=== PATIENT | female | born 1935 | race Caucasian/White ===

== ENCOUNTER 2016-11-18 18:01 | Emergency (ER) | payer MEDICARE, OTHER ==
[~2016-11-18] VITALS: Ht 167.6 cm; Wt 59.0 kg
[~2016-11-18 18:01] MED LIST: ACETAMINOPHEN-1 EAC1 ORAL; ATIVAN1 MG ORAL; BENADRYL50 MG ORAL; EPIPEN 2-P0.3 MG/0.3 IM; PREDNISONE20 MG ORAL
[2016-11-18] MEDS ORDERED: SYNTHROID75 MCG ORAL (18:45)
[2016-11-18] MEDS ORDERED: Tubing IV Cassette IV ONE (18:53)
[2016-11-18 19:02] LABS: BASOPHILS % (AUTO) 1.6 % (0.0-2.0); EOSINOPHILS % (AUTO) 3.6 % (0.0-3.0); LYMPHOCYTES % (AUTO) 34.8 % (20.0-45.0); MEAN CORPUSCULAR HEMOGLOBIN 33.7 PG (27.0-31.0); MEAN CORPUSCULAR HGB CONC 35.2 G/DL (32.0-36.0); MEAN CORPUSCULAR VOLUME 96 FL (80-99); MEAN PLATELET VOLUME 9.5 FL (6.5-10.1); PLATELET COUNT 286 K/UL (150-450); RED BLOOD COUNT 4.38 M/UL (4.20-5.40); RED CELL DISTRIBUTION WIDTH 12.1 % (11.6-14.8); WHITE BLOOD COUNT 8.9 K/UL (4.8-10.8)
[2016-11-18 19:11] LABS: PROTHROMBIN TIME 10.2 SEC (9.30-11.50)
[2016-11-18 19:17] LABS: ALANINE AMINOTRANSFERASE 15 U/L (3-33); ALBUMIN/GLOBULIN RATIO 1.5 (1.0-2.7); ANION GAP 11 (5-15); ASPARTATE AMINO TRANSFERASE 16 U/L (5-40); CALCIUM 11.6 mg/dL (8.6-10.2); CARBON DIOXIDE 25 mEQ/L (20-30); CHLORIDE 105 mEQ/L (98-107); CREATININE 0.8 mg/dL (0.5-0.9); HEMOLYSIS 9; LIPASE 43 U/L (< 60); SODIUM 141 mEQ/L (135-145); TOTAL PROTEIN 6.6 g/dL (6.6-8.7); TROPONIN I < 0.30 ng/mL (<=0.30)
[2016-11-18] MEDS ORDERED: Clindamycin PO (19:18)
[2016-11-18 19:25] VITALS: BP 119/58
[2016-11-18] MEDS ORDERED: TRAMADOL HCL50 MG ORAL (20:33)
[2016-11-18 20:42] VITALS: BP 127/66
[2016-11-18 20:45] VITALS: BP 127/66
--- NOTE | 2016-11-18 20:57 | Emergency Room Report ---
History of Present Illness General Chief Complaint: Abdominal Pain Source: Patient (BEBA OLIVER) Present Illness HPI The patient is an 81-year-old female presenting with abdominal pain. She states that she experienced right upper abdominal pain 2 days prior described as cramping 10/11. Pain does not radiate. She states that this began after taking clindamycin prescribed by her dentist. She does admit to history of gallstones. She denies any other symptoms including nausea, vomiting, fever, chills, back pain, dysuria (BEBA OLIVER) Allergies: Coded Allergies: IODINE (Verified Allergy, Unknown, 03/16/15) Patient History Past Medical History: see triage record Pertinent Family History: none Reviewed Nursing Documentation: PMH: Agreed, PSxH: Agreed (BEBA OLIVER) Nursing Documentation-PMH Past Medical History: No History, Except For Hx Cancer: No Hx Gastrointestinal Problems: Yes Hx Neurological Problems: No (BEBA OLIVER) Review of Systems All Other Systems: negative except mentioned in HPI (BEBA OLIVER P.AEzequiel) Physical Exam Vital Signs Date Time Temp Pulse Resp B/P (MAP) Pulse Ox O2 Delivery O2 Flow Rate FiO2 11/18/16 18:07 97.3 67 18 130/66 99 Room Air Sp02 EP Interpretation: reviewed, normal General Appearance: no apparent distress, alert, GCS 15, non-toxic Head: normocephalic, atraumatic Eyes: bilateral eye normal inspection, bilateral eye PERRL ENT: hearing grossly normal, normal pharynx, no angioedema, normal voice Respiratory: chest non-tender, lungs clear, normal breath sounds, speaking full sentences Cardiovascular #1: regular rate, rhythm, no edema Gastrointestinal: normal bowel sounds, soft, non-distended, no guarding, tenderness - TTP over RUQ Genitourinary: normal inspection, no CVA tenderness Musculoskeletal: back normal, gait/station normal, normal range of motion, non- tender Neurologic: alert, oriented x3, responsive, motor strength/tone normal, sensory intact, speech normal Psychiatric: judgement/insight normal, memory normal, mood/affect normal, no suicidal/homicidal ideation Skin: normal color, no rash, warm/dry, well hydrated (BEBA OLIVER) Medical Decision Making [place] Attestation Dr. Singletary is my supervising physician. Patient management was discussed with my supervising physician (BEBA OLIVER) Medicare Attestation The history of Pilar Santamaria has been reviewed and management options for her have been examined and discussed by Prashant Singletary. I have personally examined and interviewed the patient. (PRASHANT SINGLETARY M.D.) Diagnostic Impression: Primary Impression: Gallstones Additional Impression: Abdominal pain Qualified Codes: R10.9 - Unspecified abdominal pain ER Course The patient is an 81-year-old female presenting with abdominal pain. Differential diagnoses considered include but not limited to gastritis, pancreatitis, cholecystitis, gallstone, hepatitis, among others Physical exam: Afebrile. No apparent distress There is tenderness to palpation over right upper quadrant only. No guarding. Normal bowel sounds. Nondistended. No CVA tenderness All labs unremarkable. Abdominal ultrasound reveals gallstones with no signs of cholecystitis. The patient will be discharged home with pain medication and needs to follow up with her primary doctor. ER precautions given Laboratory Tests Test 11/18/16 18:10 White Blood Count 8.9 K/UL (4.8-10.8) Red Blood Count 4.38 M/UL (4.20-5.40) Hemoglobin 14.7 G/DL (12.0-16.0) Hematocrit 41.9 % (37.0-47.0) Mean Corpuscular Volume 96 FL (80-99) Mean Corpuscular Hemoglobin 33.7 PG (27.0-31.0) H Mean Corpuscular Hemoglobin Concent 35.2 G/DL (32.0-36.0) Red Cell Distribution Width 12.1 % (11.6-14.8) Platelet Count 286 K/UL (150-450) Mean Platelet Volume 9.5 FL (6.5-10.1) Neutrophils (%) (Auto) 51.0 % (45.0-75.0) Lymphocytes (%) (Auto) 34.8 % (20.0-45.0) Monocytes (%) (Auto) 9.0 % (1.0-10.0) Eosinophils (%) (Auto) 3.6 % (0.0-3.0) H Basophils (%) (Auto) 1.6 % (0.0-2.0) Prothrombin Time 10.2 SEC (9.30-11.50) Prothrombin Time INR 1.0 (0.9-1.1) PTT 28 SEC (23-33) Sodium Level 141 mEQ/L (135-145) Potassium Level 4.0 mEQ/L (3.4-4.9) Chloride Level 105 mEQ/L (98-107) Carbon Dioxide Level 25 mEQ/L (20-30) Anion Gap 11 (5-15) Blood Urea Nitrogen 8 mg/dL (7-23) Creatinine 0.8 mg/dL (0.5-0.9) Estimate Glomerular Filtration Rate mL/min (>60) Glucose Level 89 mg/dL (74-106) Calcium Level 11.6 mg/dL (8.6-10.2) H Total Bilirubin 0.2 mg/dL (0.0-1.2) Aspartate Amino Transferase (AST) 16 U/L (5-40) Alanine Aminotransferase (ALT) 15 U/L (3-33) Alkaline Phosphatase 59 U/L (35-104) Troponin I < 0.30 ng/mL (<=0.30) Total Protein 6.6 g/dL (6.6-8.7) Albumin 4.0 g/dL (3.5-5.2) Globulin 2.6 g/dL Albumin/Globulin Ratio 1.5 (1.0-2.7) Lipase 43 U/L (< 60) Lab Results Impression Unremarkable. No leukocytosis (TERESTRADAAN,BEBA P.A.) CT/MRI/US Diagnostic Results CT/MRI/US Diagnostic Results : Imaging Test Ordered: Abd US Impression Gallbladder stones are seen. Gallbladder wall evaluation limited per forestry aid technician. No evidence of cholecystitis (BENITO,BEBA P.A.) Last Vital Signs Date Time Temp Pulse Resp B/P (MAP) Pulse Ox O2 Delivery O2 Flow Rate FiO2 11/18/16 19:25 97.3 61 14 119/58 96 Room Air Status: improved (BENITO,BEBA P.A.) Disposition: HOME, SELF-CARE Condition: Improved Scripts Tramadol Hcl* (ULTRAM*) 50 Mg Tablet 50 MG ORAL Q6H Y for For Pain, #12 TAB 0 Refills Prov: BEBA OLIVER 11/18/16 Patient Instructions: Cholelithiasis, Abdominal Pain, Adult Additional Instructions: I discussed my findings with the patient. All questions and concerns have been answered. Treatment and medication compliance have been addressed. I advised the patient that they need to follow up with PMD in 3-5 days. Return to ED if symptoms worsen, new symptoms arise, or if needed for any reason. Patient verbalized understanding of discharge instructions. BEBA OLIVER Nov 18, 2016 20:57 PRASHANT SINGLETARY M.D. Nov 21, 2016 17:46
[2016-11-18 21:01] VITALS: BP 127/66
--- NOTE | 2016-11-19 10:04 | Diagnostic Imaging Report ---
Indication: Right upper quadrant pain Technique: Valladares-scale and duplex images of the upper abdomen were obtained Comparison: 02/16/2008 Findings: Gallbladder is incompletely distended, and therefore evaluation is suboptimal. There are gallstones. No definite gallbladder wall thickening, although lack of distention precludes optimal evaluation of wall thickness Sonographic Villalta's sign is negative. Common bile duct measures 6 mm in diameter. No intrahepatic biliary ductal dilatation. Liver demonstrates normal echogenicity. Multiple cysts are seen within the liver, including 4.8 cm cyst in the right hepatic lobe which was also demonstrated previously. Portal vein and hepatic veins are patent. Pancreas is unremarkable. Spleen is unremarkable. Left kidney measures 9.9 cm in length. Right kidney measures 8.9 cm length. Both kidneys demonstrate normal echogenicity. There is no hydronephrosis. The left kidney demonstrates a 19 mm cyst . Non-aneurysmal abdominal aorta . Impression: Limit evaluation gallbladder, due to lack of distention due to patient having recently eaten. There is cholelithiasis. Negative for dilated ducts Incidental finding of hepatic and left renal cysts, also previously described. Note that a prior CT scan of 03/16/2015 demonstrates more hepatic cysts than are evident sonographically
== END 2016-11-18 20:45 | disposition home or self-care (01) ==
LOC: EMR 19:32
DX: K80.80 Other cholelithiasis without obstruction (principal); K76.89 Other specified diseases of liver; N28.1 Cyst of kidney, acquired
CPT/HCPCS: 36415; 76700; 80053; 83690; 84484; 85025; 85610; 85730; 96361; 96374; 99284; J2405

== ENCOUNTER 2017-03-28 12:32 | Inpatient (IN) | payer MEDICARE, OTHER ==
[~2017-03-28] VITALS: Ht 167.6 cm; Wt 59.0 kg
[~2017-03-28 12:32] MED LIST changes: +Clindamycin PO; +SYNTHROID75 MCG ORAL; +TRAMADOL HCL50 MG ORAL
[2017-03-28 12:51] VITALS: BP 145/64
--- NOTE | 2017-03-28 13:31 | Emergency Room Report ---
History of Present Illness General Chief Complaint: Pain Source: Patient Present Illness HPI This is an 81-year-old female presented after increased right upper extremity burning sensation. Patient gradual onset of symptoms. Patient reports as being worse with neck movements. She states that she had not had any recent trauma. She had no relief with codeine or morphine. She reports having some increased drooping to her right eye. Patient reported having some had decrease in strength her lower extremities. She reports also having some change in the strength to her right upper extremity. Patient prior history of gallstones. She denies prior surgical management of any conditions. She had recently had a steroid injection. She denies any fever. She reports having recent left eye discharge and had been treated with eyedrops recently. The patient was noted to have the consistent drainage of her left nostril. the patient was noted to have increased right upper extremity discomfort with a burning type sensation which was not associated with any weakness however she was noted to have increased pain with abduction. And right lateral neck movement Allergies: Coded Allergies: IODINE (Verified Allergy, Unknown, 03/16/15) Patient History Past Medical History: see triage record Reviewed Nursing Documentation: PMH: Agreed, PSxH: Agreed Nursing Documentation-PMH Past Medical History: No History, Except For Hx Cancer: No Hx Gastrointestinal Problems: Yes Hx Neurological Problems: No Review of Systems All Other Systems: negative except mentioned in HPI Physical Exam Vital Signs Date Time Temp Pulse Resp B/P (MAP) Pulse Ox O2 Delivery O2 Flow Rate FiO2 03/28/17 12:41 97.2 80 16 145/64 99 Room Air Sp02 EP Interpretation: reviewed, normal General Appearance: normal inspection, no apparent distress, alert, GCS 15, Chronically Ill Head: atraumatic Eyes: bilateral eye other - right eye ptosis ENT: normal ENT inspection, hearing grossly normal, normal voice Neck: normal inspection, supple, no bony tend, other - increased pain with right rotation Respiratory: normal inspection, lungs clear, normal breath sounds, no respiratory distress, no retraction, no wheezing Cardiovascular #1: regular rate, rhythm, no edema Gastrointestinal: normal inspection, normal bowel sounds, non tender, soft, no guarding, no hernia Genitourinary: no CVA tenderness Musculoskeletal: normal inspection, back normal, decreased range of motion - right side of neck Neurologic: normal inspection, alert, oriented x3, responsive, speech normal, motor weakness - right side of neck, other - ptosis right eye, oriented Psychiatric: normal inspection, judgement/insight normal, mood/affect normal Skin: normal inspection, normal color, no rash Medical Decision Making Diagnostic Impression: Primary Impression: Right arm numbness Additional Impressions: Ptosis of eyelid, right Weakness 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 Differential diagnosis included was not limited to CVA, cervical stenosis, myasthenia gravis, thyroid myopathy, among others.Because of complexity of patient's case laboratory testing and imaging studies were ordered. Patient was noted to have weakness to her right upper extremity and bilateral lower extremities. The patient noted have acute pain to her right upper extremity. A CT imaging read radiology showed large right paratracheal mass. CT of the head read by radiology showed large amount of sinus fluid in the maxillary as well as the frontal sinus. Patient was given IV antibiotics Dr. Alvarez was contacted for inpatient management due to complexity of medical condition. Labs Test 03/28/17 13:56 White Blood Count 13.2 K/UL (4.8-10.8) Red Blood Count 4.76 M/UL (4.20-5.40) Hemoglobin 14.8 G/DL (12.0-16.0) Hematocrit 44.2 % (37.0-47.0) Mean Corpuscular Volume 93 FL (80-99) Mean Corpuscular Hemoglobin 31.0 PG (27.0-31.0) Mean Corpuscular Hemoglobin Concent 33.4 G/DL (32.0-36.0) Red Cell Distribution Width 11.9 % (11.6-14.8) Platelet Count 351 K/UL (150-450) Mean Platelet Volume 7.9 FL (6.5-10.1) Neutrophils (%) (Auto) 69.4 % (45.0-75.0) Lymphocytes (%) (Auto) 19.2 % (20.0-45.0) Monocytes (%) (Auto) 9.0 % (1.0-10.0) Eosinophils (%) (Auto) 1.2 % (0.0-3.0) Basophils (%) (Auto) 1.2 % (0.0-2.0) Erythrocyte Sedimentation Rate 6 MM/HR (0-42) Sodium Level 140 MMOL/L (136-145) Potassium Level 4.2 MMOL/L (3.5-5.1) Chloride Level 105 MMOL/L (98-107) Carbon Dioxide Level 26 MMOL/L (21-32) Anion Gap 9 mmol/L (5-15) Blood Urea Nitrogen 16 mg/dL (7-18) Creatinine 0.6 MG/DL (0.55-1.30) Estimat Glomerular Filtration Rate mL/min (>60) Glucose Level 88 MG/DL (74-106) Calcium Level 10.2 MG/DL (8.5-10.1) Total Bilirubin 0.4 MG/DL (0.2-1.0) Aspartate Amino Transf (AST/SGOT) 10 U/L (15-37) Alanine Aminotransferase (ALT/SGPT) 15 U/L (12-78) Alkaline Phosphatase 54 U/L (46-116) Troponin I 0.000 ng/mL (0.000-0.056) C-Reactive Protein, Quantitative < 0.4 mg/dL (0.00-0.90) Total Protein 6.1 G/DL (6.4-8.2) Albumin 3.6 G/DL (3.4-5.0) Globulin 2.5 g/dL Albumin/Globulin Ratio 1.4 (1.0-2.7) Thyroid Stimulating Hormone (TSH) 4.326 uiU/mL (0.358-3.740) Last Vital Signs Date Time Temp Pulse Resp B/P (MAP) Pulse Ox O2 Delivery O2 Flow Rate FiO2 03/28/17 12:51 97.2 16 145/64 99 Room Air 03/28/17 12:41 80 Status: unchanged Disposition: ADMITTED INPATIENT Condition: Elver Gore Mar 28, 2017 13:31
[2017-03-28 14:17] LABS: BASOPHILS % (AUTO) 1.2 % (0.0-2.0); EOSINOPHILS % (AUTO) 1.2 % (0.0-3.0); HEMATOCRIT 44.2 % (37.0-47.0); HEMOGLOBIN 14.8 G/DL (12.0-16.0); LYMPHOCYTES % (AUTO) 19.2 % (20.0-45.0); MEAN CORPUSCULAR VOLUME 93 FL (80-99); NEUTROPHILS % (AUTO) 69.4 % (45.0-75.0); PLATELET COUNT 351 K/UL (150-450); RED BLOOD COUNT 4.76 M/UL (4.20-5.40); RED CELL DISTRIBUTION WIDTH 11.9 % (11.6-14.8); WHITE BLOOD COUNT 13.2 K/UL (4.8-10.8)
[2017-03-28 14:29] LABS: ANION GAP 9 mmol/L (5-15); BLOOD UREA NITROGEN 16 mg/dL (7-18); CALCIUM 10.2 MG/DL (8.5-10.1); CARBON DIOXIDE 26 MMOL/L (21-32); CHLORIDE 105 MMOL/L (98-107); CREATININE 0.6 MG/DL (0.55-1.30); POTASSIUM 4.2 MMOL/L (3.5-5.1); SODIUM 140 MMOL/L (136-145)
[2017-03-28] MEDS ORDERED: Morphine Sulfate 4mg/ml Inj IVP ONE ×2 (14:30→18:45)
[2017-03-28 14:43] LABS: ALANINE AMINOTRANSFERASE 15 U/L (12-78); ALBUMIN 3.6 G/DL (3.4-5.0); ALBUMIN/GLOBULIN RATIO 1.4 (1.0-2.7); ALKALINE PHOSPHATASE 54 U/L (46-116); ASPARTATE AMINO TRANSFERASE 10 U/L (15-37); BILIRUBIN,TOTAL 0.4 MG/DL (0.2-1.0)
--- NOTE | 2017-03-28 15:10 | Diagnostic Imaging Report ---
Indications: Increased right upper extremity burning sensation and altered mental status, right eye drooping, decreased lower extremity strength and right upper extremity strength Technique: Spiral acquisitions obtained through the brain. Angled axial and coronal 5 x 5 mm slices were reconstructed. Total dose length product 1354.97 mGycm. CTDI vol(s) 70.38 mGy. Dose reduction achieved using automated exposure control Comparison: 03/23/2015 Findings: Again demonstrated is age-related enlargement of the ventricles and extra axial CSF spaces. Normal gallegos-white differentiation. 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 The calvarium is intact. Again demonstrated is extensive sinus disease with opacification of the left sphenoid sinus, left greater than right mastoid air cells, left frontal sinus and probably left maxillary sinus Impression: No acute intracranial bleed or mass effect Age-related volume loss Sinus disease The CT scanner at [facility] is accredited by the [employer] and the scans are performed using protocols designed to limit radiation exposure to as low as reasonably achievable to attain images of sufficient resolution adequate for diagnostic evaluation.
--- NOTE | 2017-03-28 15:19 | Diagnostic Imaging Report ---
Indication: Right upper extremity burning sensation worse with neck movements, decreased bilateral lower extremity strength and right upper extremity strength Technique: Spiral acquisitions obtained through the cervical spine. No IV contrast utilized. Multiplanar reconstructions were generated. Total dose length product to 48 mGycm. CTDIvol(s) 12 mGy. Dose reduction achieved using automated exposure control. Comparison: none Findings: There is very slight anterior offset of C3 on C4. Bony alignment is otherwise normal. No acute fractures. No dislocations. At C3-4, bilateral facet arthrosis results in [id number] narrowing of the bilateral neural foramina. 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 There is arthrosis of the left C3-4 facet. No significant disc bulge or protrusion or disc space narrowing At C4-5, the disc spaces preserved. There is right greater than left facet arthrosis, resulting in mild narrowing of the right neural foramen. No significant disc bulge or protrusion or disc space narrowing. At C5-6, there is mild degenerative disc narrowing. There is bilateral moderate to severe neural foraminal narrowing, due to combination of uncinate hypertrophy and facet arthrosis. No significant disc bulge or protrusion or spinal stenosis. At C6-7, there is minimal degenerative disc narrowing. Bilateral facet arthrosis results in mild to moderate right, mild left neural foraminal stenosis. No significant disc bulge or protrusion or spinal stenosis At the remaining levels, no significant disc bulge or protrusion, spinal stenosis, or neural foraminal narrowing. The extra spinal soft tissues are remarkable for the presence of an incompletely included right paratracheal mass which measures at least 4 x 3.7 cm. Impression: No acute bony trauma Right paratracheal mass, incompletely visualized. Recommend contrast chest CT for further evaluation. Degenerative changes as detailed on a level by level basis above Findings discussed by phone with Dr. Wall at the time of interpretation The CT scanner at [facility] is accredited by the [employer] and the scans are performed using protocols designed to limit radiation exposure to as low as reasonably achievable to attain images of sufficient resolution adequate for diagnostic evaluation.
[2017-03-28 15:23] VITALS: BP 139/66
--- NOTE | 2017-03-28 15:26 | Diagnostic Imaging Report ---
Indication: Cough Technique: One view of the chest Comparison: 03/23/2015 Findings: Interim development of right paratracheal mass and some associated pleural thickening. The remainder of the lung bases are clear. Heart size is normal Impression: Right paratracheal mass or adenopathy, new since 03/23/2015. The current further evaluation with chest CT. This was previously discussed by phone with Dr. Wall No acute cardiopulmonary process
[2017-03-28 16:30] VITALS: BP 143/79
[2017-03-28] MEDS ORDERED: LORazepam Inj 2mg/ml 1ml IV PRN (16:30)
[2017-03-28] MEDS ORDERED: Zolpidem 5mg tab ORAL PRN (16:30)
[2017-03-28] MEDS ORDERED: Morphine Sulfate 2mg/ml Inj IVP PRN ×2 (16:30→18:30)
[2017-03-28] MEDS ORDERED: Mylanta II UD 30ml ORAL PRN (16:30)
[2017-03-28] MEDS ORDERED: Miralax 17gm pkt ORAL PRN (16:30)
[2017-03-28 20:00] VITALS: BP 92/50
--- NOTE | 2017-03-28 21:45 | History and Physical ---
History of Present Illness General Date patient seen: Mar 28, 2017 Reason for Hospitalization: Pain Present Illness HPI 81-year-old female with hx of hypothyroid presented to Er with CC of right upper extremity burning sensation with gradual onset of symptoms. Patient reports as being worse with neck movements. She states that she had not had any recent trauma. She reports having some increased drooping to her right eye and decrease in strength her lower extremities, change in the strength to her right upper extremity. The patient was noted to have the consistent drainage of her left nostril. the patient was noted to have increased right upper extremity discomfort with a burning type sensation which was not associated with any weakness however she was noted to have increased pain with abduction. Allergies: Coded Allergies: IODINE (Verified Allergy, Unknown, 03/16/15) Medication History Scheduled Epinephrine (Epipen 2-Florencio), 0.3 MG IM ONCE Levothyroxine Sodium* (Synthroid*), 75 MCG ORAL DAILY, (Reported) Lorazepam* (Ativan*), 1 MG ORAL BEDTIME Prednisone* (Prednisone*), 40 MG ORAL DAILY [Clindamycin], 300 MG PO TID, (Reported) Scheduled PRN Acetaminophen With Codeine (T#3) (Tylenol #3 Tab*), 1 TAB ORAL Q4H PRN for For Pain Diphenhydramine HCl (Diphenhydramine HCl), 50 MG ORAL Q6H PRN for Itching Tramadol Hcl* (Ultram*), 50 MG ORAL Q6H PRN for For Pain Patient History Healthcare decision maker Resuscitation status Full Code Advanced Directive on File Past Medical/Surgical History Past Medical/Surgical History: (1) Failure to thrive in adult (2) Hypothyroidism Review of Systems Constitutional: Reports: no symptoms Eye: Reports: no symptoms Musculoskeletal: Reports: muscle pain, muscle stiffness All Other Systems: negative except mentioned in HPI Physical Exam General Appearance: WD/WN Lines, tubes and drains: peripheral HEENT: normocephalic, atraumatic Neck: non-tender, normal alignment Respiratory/Chest: chest wall non-tender, lungs clear, normal breath sounds Breasts: no masses Cardiovascular/Chest: normal peripheral pulses Abdomen: normal bowel sounds, non tender Genitourinary/Rectal: normal genital exam, normal rectal exam Extremities: normal range of motion Skin Exam: normal pigmentation Neurologic: ring facer II-XII grossly normal Lymphatic: anterior cervical Last 24 Hour Vital Signs Date Time Temp Pulse Resp B/P (MAP) Pulse Ox O2 Delivery O2 Flow Rate FiO2 03/28/17 20:00 73 03/28/17 20:00 98.2 68 20 92/50 95 Room Air 03/28/17 16:54 96.4 67 18 143/79 94 Room Air 03/28/17 16:30 96.4 67 18 143/79 94 Room Air 03/28/17 16:00 66 03/28/17 15:48 97.6 03/28/17 15:23 97.6 16 139/66 99 Room Air 03/28/17 12:51 97.2 16 145/64 99 Room Air 03/28/17 12:41 97.2 80 16 145/64 99 Room Air Laboratory Tests Test 03/28/17 13:56 White Blood Count 13.2 K/UL (4.8-10.8) H Red Blood Count 4.76 M/UL (4.20-5.40) Hemoglobin 14.8 G/DL (12.0-16.0) Hematocrit 44.2 % (37.0-47.0) Mean Corpuscular Volume 93 FL (80-99) Mean Corpuscular Hemoglobin 31.0 PG (27.0-31.0) Mean Corpuscular Hemoglobin Concent 33.4 G/DL (32.0-36.0) Red Cell Distribution Width 11.9 % (11.6-14.8) Platelet Count 351 K/UL (150-450) Mean Platelet Volume 7.9 FL (6.5-10.1) Neutrophils (%) (Auto) 69.4 % (45.0-75.0) Lymphocytes (%) (Auto) 19.2 % (20.0-45.0) L Monocytes (%) (Auto) 9.0 % (1.0-10.0) Eosinophils (%) (Auto) 1.2 % (0.0-3.0) Basophils (%) (Auto) 1.2 % (0.0-2.0) Erythrocyte Sedimentation Rate 6 MM/HR (0-42) Sodium Level 140 MMOL/L (136-145) Potassium Level 4.2 MMOL/L (3.5-5.1) Chloride Level 105 MMOL/L (98-107) Carbon Dioxide Level 26 MMOL/L (21-32) Anion Gap 9 mmol/L (5-15) Blood Urea Nitrogen 16 mg/dL (7-18) Creatinine 0.6 MG/DL (0.55-1.30) Estimat Glomerular Filtration Rate mL/min (>60) Glucose Level 88 MG/DL (74-106) Calcium Level 10.2 MG/DL (8.5-10.1) H Total Bilirubin 0.4 MG/DL (0.2-1.0) Aspartate Amino Transf (AST/SGOT) 10 U/L (15-37) L Alanine Aminotransferase (ALT/SGPT) 15 U/L (12-78) Alkaline Phosphatase 54 U/L (46-116) Troponin I 0.000 ng/mL (0.000-0.056) C-Reactive Protein, Quantitative < 0.4 mg/dL (0.00-0.90) Total Protein 6.1 G/DL (6.4-8.2) L Albumin 3.6 G/DL (3.4-5.0) Globulin 2.5 g/dL Albumin/Globulin Ratio 1.4 (1.0-2.7) Thyroid Stimulating Hormone (TSH) 4.326 uiU/mL (0.358-3.740) Height (Feet): 5 Height (Inches): 6.00 Weight (Pounds): 130 Medications Current Medications Medications (Trade) Dose Ordered Sig/Brien Route PRN Reason Start Time Stop Time Status Last Admin Dose Admin Acetaminophen (Tylenol) 650 mg Q4H PRN ORAL fever 03/28/17 16:30 04/27/17 16:29 Al Hydroxide/Mg Hydroxide (Mylanta II) 30 ml Q6H PRN ORAL dyspepsia 03/28/17 16:30 04/27/17 16:29 Dextrose (Dextrose 50%) STAT PRN IV Hypoglycemia 03/28/17 16:30 04/27/17 16:29 Levothyroxine Sodium (Synthroid) 75 mcg ACBREAKFAST ORAL 03/29/17 06:30 04/28/17 06:29 Lorazepam (Ativan 2mg/ml 1ml) 0.5 mg Q4H PRN IV For Anxiety 03/28/17 16:30 04/04/17 16:29 Morphine Sulfate (Morphine Sulfate) 1 mg Q4H PRN IVP Moderate Pain (Pain Scale 4-6) 03/28/17 18:30 04/04/17 16:29 Morphine Sulfate (Morphine Sulfate) 4 mg Q4H PRN IVP Severe Pain (Pain Scale 7-10) 03/28/17 18:30 04/04/17 18:29 Ondansetron HCl (Zofran) 4 mg Q6H PRN IVP Nausea & Vomiting 03/28/17 16:30 04/27/17 16:29 Polyethylene Glycol (Miralax) 17 gm HSPRN PRN ORAL Constipation 03/28/17 16:30 04/27/17 16:29 Prednisone (predniSONE) 40 mg DAILY ORAL 03/29/17 09:00 04/28/17 08:59 Zolpidem Tartrate (Ambien) 5 mg HSPRN PRN ORAL Insomnia 03/28/17 16:30 04/04/17 16:29 Assessment/Plan Problem List: (1) Radiculopathy ICD Codes: M54.10 - Radiculopathy, site unspecified SNOMED: 61361068 (2) paratracheal mass (3) Ptosis of eyelid, right ICD Codes: H02.401 - Unspecified ptosis of right eyelid SNOMED: 81474879 (4) Failure to thrive in adult ICD Codes: R62.7 - Adult failure to thrive SNOMED: 196438641 (5) Hypothyroidism ICD Codes: E03.9 - Hypothyroidism, unspecified SNOMED: 19239724 Assessment/Plan Neuro evaluation CT of chest to evaluate for paratracheal mass. symptomatic treatment check T4, t3 SAIMA LAFLEUR Mar 28, 2017 21:45
[2017-03-28] MEDS: Morphine Sulfate 4mg/ml Inj IVP PRN (23:27)
[2017-03-29] VITALS: BP 101/48
[2017-03-29 03:10] LABS: APPEARANCE,URINE CLEAR; BILIRUBIN, URINE NEGATIVE (NEGATIVE); COLOR,URINE PALE YELLOW; GLUCOSE, URINE (UA) NEGATIVE (NEGATIVE); KETONES,URINE 1+ (NEGATIVE); LEUKOCYTE ESTERASE ,URINE 2+ (NEGATIVE); NITRITE,URINE NEGATIVE (NEGATIVE); PH,URINE 5 (4.5-8.0); PROTEIN,URINE NEGATIVE (NEGATIVE); UROBILINOGEN,URINE NORMAL MG/DL (0.0-1.0)
[2017-03-29 04:00] VITALS: BP 114/63
[2017-03-29] MEDS: Morphine Sulfate 4mg/ml Inj IVP PRN ×2 (05:10→12:02)
[2017-03-29 07:29] LABS: BASOPHILS % (AUTO) 1.3 % (0.0-2.0); EOSINOPHILS % (AUTO) 4.1 % (0.0-3.0); HEMATOCRIT 42.4 % (37.0-47.0); HEMOGLOBIN 14.1 G/DL (12.0-16.0); LYMPHOCYTES % (AUTO) 25.9 % (20.0-45.0); MEAN CORPUSCULAR VOLUME 94 FL (80-99); MONOCYTES % (AUTO) 9.2 % (1.0-10.0); NEUTROPHILS % (AUTO) 59.4 % (45.0-75.0); PLATELET COUNT 331 K/UL (150-450); RED BLOOD COUNT 4.53 M/UL (4.20-5.40); RED CELL DISTRIBUTION WIDTH 12.2 % (11.6-14.8); WHITE BLOOD COUNT 11.5 K/UL (4.8-10.8)
[2017-03-29 08:00] VITALS: BP 109/62
[2017-03-29 08:17] LABS: ALANINE AMINOTRANSFERASE 16 U/L (12-78); ALBUMIN/GLOBULIN RATIO 1.1 (1.0-2.7); ALKALINE PHOSPHATASE 52 U/L (46-116); ANION GAP 10 mmol/L (5-15); ASPARTATE AMINO TRANSFERASE 10 U/L (15-37); BILIRUBIN,TOTAL 0.2 MG/DL (0.2-1.0); BLOOD UREA NITROGEN 20 mg/dL (7-18); CALCIUM 9.2 MG/DL (8.5-10.1); CARBON DIOXIDE 25 MMOL/L (21-32); CHLORIDE 105 MMOL/L (98-107); CHOLESTEROL 161 MG/DL (< 200); CREATININE 0.7 MG/DL (0.55-1.30); HDL CHOLESTEROL 49 MG/DL (40-60); POTASSIUM 4.3 MMOL/L (3.5-5.1); SODIUM 139 MMOL/L (136-145); TRIGLYCERIDES 90 MG/DL (30-150)
[2017-03-29 12:00] VITALS: BP 118/63
--- NOTE | 2017-03-29 12:34 | Pulmonology Progress Note ---
Assessment/Plan Problems: (1) Radiculopathy (2) paratracheal mass (3) Ptosis of eyelid, right (4) Failure to thrive in adult (5) Hypothyroidism Assessment/Plan ct chest pending d/w neuro endo consult ordered symptomatic treatment Subjective ROS Limited/Unobtainable: No Interval Events: no new complains Constitutional: Reports: no symptoms Allergies: Coded Allergies: IODINE (Verified Allergy, Unknown, 03/16/15) Objective Last 24 Hour Vital Signs Date Time Temp Pulse Resp B/P (MAP) Pulse Ox O2 Delivery O2 Flow Rate FiO2 03/29/17 12:00 97.2 61 18 118/63 97 Room Air 03/29/17 08:00 97.3 59 18 109/62 96 Room Air 03/29/17 08:00 61 03/29/17 04:00 98.0 66 20 114/63 98 Room Air 03/29/17 04:00 60 03/29/17 00:00 97.0 77 20 101/48 96 Room Air 03/29/17 00:00 64 03/28/17 20:00 73 03/28/17 20:00 98.2 68 20 92/50 95 Room Air 03/28/17 16:54 96.4 67 18 143/79 94 Room Air 03/28/17 16:30 96.4 67 18 143/79 94 Room Air 03/28/17 16:00 66 03/28/17 15:48 97.6 03/28/17 15:23 97.6 16 139/66 99 Room Air 03/28/17 12:51 97.2 16 145/64 99 Room Air 03/28/17 12:41 97.2 80 16 145/64 99 Room Air Intake and Output 03/28/17 03/29/17 19:00 07:00 Intake Total 240 ml Balance 240 ml Intake Oral 240 ml # Voids 1 2 General Appearance: WD/WN HEENT: normocephalic, anicteric Respiratory/Chest: chest wall non-tender, lungs clear, normal breath sounds Breasts: no masses Cardiovascular: normal peripheral pulses, regularly irregular Abdomen: normal bowel sounds, soft, non tender Genitourinary: normal external genitalia Skin: no rash Neurologic/Psychiatric: warp picker II-XII grossly normal Laboratory Tests 03/28/17 13:56: White Blood Count 13.2H, Red Blood Count 4.76, Hemoglobin 14.8, Hematocrit 44.2 , Mean Corpuscular Volume 93, Mean Corpuscular Hemoglobin 31.0, Mean Corpuscular Hemoglobin Concent 33.4, Red Cell Distribution Width 11.9, Platelet Count 351, Mean Platelet Volume 7.9, Neutrophils (%) (Auto) 69.4, Lymphocytes (% ) (Auto) 19.2L, Monocytes (%) (Auto) 9.0, Eosinophils (%) (Auto) 1.2, Basophils (%) (Auto) 1.2, Erythrocyte Sedimentation Rate 6, Sodium Level 140, Potassium Level 4.2, Chloride Level 105, Carbon Dioxide Level 26, Anion Gap 9, Blood Urea Nitrogen 16, Creatinine 0.6, Estimat Glomerular Filtration Rate , Glucose Level 88, Calcium Level 10.2H, Total Bilirubin 0.4, Aspartate Amino Transf (AST/SGOT) 10L, Alanine Aminotransferase (ALT/SGPT) 15, Alkaline Phosphatase 54, Troponin I 0.000, C-Reactive Protein, Quantitative < 0.4, Total Protein 6.1L, Albumin 3.6 , Globulin 2.5, Albumin/Globulin Ratio 1.4, Thyroid Stimulating Hormone (TSH) 4.326H 03/29/17 02:15: Urine Color Pale yellow, Urine Appearance Clear, Urine pH 5, Urine Specific [place] 1.025, Urine Protein Negative, Urine Glucose (UA) Negative, Urine Ketones 1+H, Urine Occult Blood 1+H, Urine Nitrite Negative, Urine Bilirubin Negative, Urine Urobilinogen Normal, Urine Leukocyte Esterase 2+H, Urine RBC 0-2 , Urine WBC 15-20H, Urine Squamous Epithelial Cells Few, Urine Bacteria Few 03/29/17 06:10: White Blood Count 11.5H, Red Blood Count 4.53, Hemoglobin 14.1, Hematocrit 42.4 , Mean Corpuscular Volume 94, Mean Corpuscular Hemoglobin 31.2H, Mean Corpuscular Hemoglobin Concent 33.4, Red Cell Distribution Width 12.2, Platelet Count 331, Mean Platelet Volume 7.9, Neutrophils (%) (Auto) 59.4, Lymphocytes (% ) (Auto) 25.9, Monocytes (%) (Auto) 9.2, Eosinophils (%) (Auto) 4.1H, Basophils (%) (Auto) 1.3, Sodium Level 139, Potassium Level 4.3, Chloride Level 105, Carbon Dioxide Level 25, Anion Gap 10, Blood Urea Nitrogen 20H, Creatinine 0.7, Estimat Glomerular Filtration Rate , Glucose Level 93, Calcium Level 9.2, Total Bilirubin 0.2, Aspartate Amino Transf (AST/SGOT) 10L, Alanine Aminotransferase ( ALT/SGPT) 16, Alkaline Phosphatase 52, Total Protein 5.8L, Albumin 3.0L, Globulin 2.8, Albumin/Globulin Ratio 1.1, Thyroid Stimulating Hormone (TSH) 13.450H, Triglycerides Level 90, Cholesterol Level 161, LDL Cholesterol 101H, HDL Cholesterol 49, Cholesterol/HDL Ratio 3.3 Current Medications Medications (Trade) Dose Ordered Sig/Brien Route PRN Reason Start Time Stop Time Status Last Admin Dose Admin Acetaminophen (Tylenol) 650 mg Q4H PRN ORAL fever 03/28/17 16:30 04/27/17 16:29 Al Hydroxide/Mg Hydroxide (Mylanta II) 30 ml Q6H PRN ORAL dyspepsia 03/28/17 16:30 04/27/17 16:29 Dextrose (Dextrose 50%) STAT PRN IV Hypoglycemia 03/28/17 16:30 04/27/17 16:29 Gabapentin (Neurontin) 100 mg THREE TIMES A DAY ORAL 03/29/17 13:00 04/28/17 12:59 03/29/17 12:01 Levothyroxine Sodium (Synthroid) 75 mcg ACBREAKFAST ORAL 03/29/17 06:30 04/28/17 06:29 03/29/17 06:41 Lorazepam (Ativan 2mg/ml 1ml) 0.5 mg Q4H PRN IV For Anxiety 03/28/17 16:30 04/04/17 16:29 Morphine Sulfate (Morphine Sulfate) 1 mg Q4H PRN IVP Moderate Pain (Pain Scale 4-6) 03/28/17 18:30 04/04/17 16:29 Morphine Sulfate (Morphine Sulfate) 4 mg Q4H PRN IVP Severe Pain (Pain Scale 7-10) 03/28/17 18:30 04/04/17 18:29 03/29/17 12:02 Ondansetron HCl (Zofran) 4 mg Q6H PRN IVP Nausea & Vomiting 03/28/17 16:30 04/27/17 16:29 Polyethylene Glycol (Miralax) 17 gm HSPRN PRN ORAL Constipation 03/28/17 16:30 04/27/17 16:29 Prednisone (predniSONE) 40 mg DAILY ORAL 03/29/17 09:00 04/28/17 08:59 03/29/17 10:14 Zolpidem Tartrate (Ambien) 5 mg HSPRN PRN ORAL Insomnia 03/28/17 16:30 04/04/17 16:29 SAIMA LAFLEUR Mar 29, 2017 12:34
[2017-03-29 16:00] VITALS: BP 125/64
--- NOTE | 2017-03-29 18:15 | Consultation ---
DATE OF CONSULTATION: 03/29/2017 NEUROLOGICAL CONSULTATION CONSULTING PHYSICIAN: Jorge Burgess M.D. REQUESTING PHYSICIAN: Betsy Alvarez M.D. HISTORY OF PRESENT ILLNESS: The patient is an 81-year-old female, seen in neurological consultation to evaluate the new onset of intractable pain. The patient informed me that she was doing fairly well in stable condition with no previous pains. About two weeks ago, she started to develop initially pain in her right hand, then gradually shifted to the proximal aspect of right upper extremity. Pain became severe, crampy, burning. It spread further to right upper back, right shoulder, periscapular region, and right breast. She tried aspirin and cold compress, felt no improvement. She was then evaluated in the urgent care facility where they suspected that she might have cardiac abnormality, the workup was negative. She was given medication for pain, Tylenol No. 3, which produced no improvement. She was tried on tramadol, but this was not well tolerated. She had a brief visit to emergency room at [facility]. There was no definitive diagnosis made. She was advised to see Dr. Henao, requested MRI of the neck, but apparently she is claustrophobic, unable to tolerate the procedure, so she was given a Medrol Florencio. She was able to take only first dose when pain became excruciating and she was brought to this facility. On examination, there was some droopy right eye. The patient complained of severe burning pain in the right upper extremity, being quite " ." The patient complained of constant drainage from her left nostril. Her vital signs on admission included blood pressure 145/64, temperature 97.2, heart rate of 80. Her initial diagnostic studies included a CBC study with WBC 13.2. Urinalysis 15-20 wbc's and 1+ ketones. Chemistry panel, elevated TSH 4.376. Repeat study 13.450. Normal liver function. Imaging studies included CAT scan of the brain, which revealed lacunar infarct, left basal ganglia; sinus disease and opacification of left sphenoid sinus, rule out left more than right mastoid, left frontal sinus and left maxillary sinus. Chest x-ray compared with the previous study from March 2015 revealed right paratracheal mass or adenopathy, which was new. Lung bases are clear. Heart size is normal. CT scan of the cervical spine revealed multilevel degenerative joint disease and also right paratracheal mass incompletely visualized. CT of the chest with contrast was recommended. Since admission until present, the patient is maintained on morphine 1 mg q.4 h., with which she received temporary improvement for 2 to 3 hours. She has p.r.n. Ativan for anxiety. She is on Synthroid supplements, Zofran, MiraLAX. She is started on prednisone 40 mg daily and zolpidem . PAST MEDICAL HISTORY: Hypothyroidism, lumbar spinal stenosis, and sinusitis. No hypertension. No diabetes. No other major medical problems. SOCIAL HISTORY: The patient is a of last three months. She lives at home alone, but her son now helps her out. 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 FAMILY HISTORY: Noncontributory. REVIEW OF SYSTEMS: Excruciating burning pain, predominantly right periscapular, right shoulder and right side of the neck area. Pain radiating to the right upper extremity. Denies chest pain or palpitations. No respiratory problems. Denies abdominal pain or discomfort. No urine or bowel incontinence. PHYSICAL EXAMINATION: GENERAL: A well-developed, well-nourished, pleasant, elderly lady, lying in bed, her son at bedside. VITAL SIGNS: Stable, blood pressure 109/62, temperature 97.3 degrees, and heart rate of 59. HEENT: Head, normocephalic and atraumatic. No evidence of trauma. Eyes, ears, and throat are clear with nasal drip on the left. Acute tenderness on palpation in the right medial periscapular region, right upper trapezius, and right shoulder area. Range of motion of both upper and lower extremities within normal limit. Peripheral pulses 1+ and symmetric. MENTAL STATUS: She is alert and oriented x3 with no evidence of aphasia or apraxia. Her cognitive function normal. The patient very disturbed with ongoing pain. CRANIAL NERVE II: Pupils both responding to light and accommodation. Extraocular movement full range. Slightly droopy right orbital fissure. CRANIAL NERVES V: Normal corneal responses. CRANIAL NERVES VII: Slight drooping of right nasolabial fold. CRANIAL NERVES VIII: Normal hearing. CRANIAL NERVES IX THROUGH XII: Tongue is in midline. Symmetric palate elevation. MOTOR EXAMINATION: Normal muscle tone. Strength 5/5 in all extremities. No involuntary movement. Deep tendon reflexes depressed bilaterally. Plantar response is flexor. SENSORY EXAMINATION: Normal to pinprick and light touch in both upper and lower extremities. Gait is stable. IMPRESSION: 1. Right cervical radiculopathy, intractable pain. Rule out C4-C5 disc prolapse. Rule out referred pain due to right paratracheal mass lesion. 2. Hypothyroidism. 3. Cervical discogenic disease. 4. History of lumbar spinal stenosis. RECOMMENDATION: Get a CT of the chest with and without contrast (the patient is allergic to iodine). If necessary, we will proceed with MRI studies. The patient will continue with the prednisone 40 mg daily x3 days with gradual tapering. We will start on Neurontin 100 mg t.i.d. to be titrated as necessary. Continue with morphine sulfate q.4 h. for pain management and local ice compress. Thank you for allowing me to see this interesting patient in neurological consultation. Jorge Burgess M.D. DR: RYAN JOB#: [id number] CC:
[2017-03-29 20:00] VITALS: BP 121/76
--- NOTE | 2017-03-29 20:45 | Consultation ---
DATE OF CONSULTATION: 03/29/2017 ORTHOPEDIC CONSULTATION CONSULTING PHYSICIAN: Daniel Villarreal M.D. REQUESTING PHYSICIAN: Betsy Alvarez M.D. CHIEF COMPLAINT: Right arm and shoulder and neck pain. HISTORY OF PRESENT ILLNESS: The patient is an 81-year-old female, presented with acute onset of right shoulder pain. The patient had a trigger point injection as outpatient that did not do anything, subsequently was admitted here. She reports pain along the right humerus extending distally. This all started from numbness and tingling in the right hand. She is now here. PAST MEDICAL HISTORY: Reviewed from the intake chart. PAST SURGICAL HISTORY: Reviewed from the intake chart. MEDICATIONS: Reviewed from the intake chart. PHYSICAL EXAMINATION: MUSCULOSKELETAL: Show TTP over right trapezius. spasm of the right trapezius. There is hypersensitivity to touch along the C5-C6 nerve distribution. Strength is limited, it is 4/5 in the right deltoid secondary to pain. Biceps and triceps is 4+. Reflexes +2. LABORATORY AND DIAGNOSTIC DATA: An MRI of the cervical spine did show significant disk space narrowing at C5-C6 and loss of cervical lordosis. ASSESSMENT: C5-C6 radiculopathy due to C5-C6 degenerative disk disease. DISCUSSION: At this point, she has acute radiculopathy, she probably slept incorrectly and then started these issues. I have discussed with her that I think it is reasonable to try the Medrol Dosepak as directed. I have recommend also starting Neurontin 100 mg p.o. t.i.d. If she has continued issues, then a possible C5-C6 epidural injection would be the next step. All treatment discussed with a possibility of a C5-C6 fusion if she has continued issues, but at this point however given no history of chronic pain and therefore should respond to conservative treatment. Daniel Villarreal M.D. DR: MEHDI JOB#: [id number] CC: Betsy Alvarez M.D.; Fax#: [phone] [facility]
[2017-03-30] VITALS: BP 115/59
[2017-03-30 04:05] VITALS: BP 124/68
[2017-03-30] MEDS: Morphine Sulfate 4mg/ml Inj IVP PRN ×3 (05:54→23:02)
--- NOTE | 2017-03-30 07:21 | Pulmonology Progress Note ---
Assessment/Plan Problems: (1) Radiculopathy (2) paratracheal mass (3) Ptosis of eyelid, right (4) Failure to thrive in adult (5) Hypothyroidism Assessment/Plan ct chest pending d/w neuro endo consult ordered symptomatic treatment pain management med/surg Subjective ROS Limited/Unobtainable: No Allergies: Coded Allergies: IODINE (Verified Allergy, Unknown, 03/16/15) Objective Last 24 Hour Vital Signs Date Time Temp Pulse Resp B/P (MAP) Pulse Ox O2 Delivery O2 Flow Rate FiO2 03/30/17 04:06 67 03/30/17 04:05 96.8 67 18 124/68 95 Room Air 03/30/17 00:00 62 03/30/17 00:00 96.8 66 18 115/59 94 Room Air 03/29/17 20:00 97.9 80 18 121/76 94 Room Air 03/29/17 20:00 86 03/29/17 16:00 68 03/29/17 16:00 97.7 62 18 125/64 98 Room Air 03/29/17 12:00 97.2 61 18 118/63 97 Room Air 03/29/17 12:00 60 03/29/17 08:00 97.3 59 18 109/62 96 Room Air 03/29/17 08:00 61 Intake and Output 03/29/17 03/30/17 19:00 07:00 Intake Total 480 ml 240 ml Balance 480 ml 240 ml Intake Oral 480 ml 240 ml # Voids 2 1 General Appearance: WD/WN HEENT: normocephalic, atraumatic Respiratory/Chest: chest wall non-tender, lungs clear Breasts: no masses Cardiovascular: normal peripheral pulses, normal rate, no JVD Abdomen: normal bowel sounds, soft, non tender, no organomegaly Current Medications Medications (Trade) Dose Ordered Sig/Brien Route PRN Reason Start Time Stop Time Status Last Admin Dose Admin Acetaminophen (Tylenol) 650 mg Q4H PRN ORAL fever 03/28/17 16:30 04/27/17 16:29 Al Hydroxide/Mg Hydroxide (Mylanta II) 30 ml Q6H PRN ORAL dyspepsia 03/28/17 16:30 04/27/17 16:29 Dextrose (Dextrose 50%) STAT PRN IV Hypoglycemia 03/28/17 16:30 04/27/17 16:29 Gabapentin (Neurontin) 100 mg THREE TIMES A DAY ORAL 03/29/17 13:00 04/28/17 12:59 03/29/17 17:52 Levothyroxine Sodium (Synthroid) 75 mcg ACBREAKFAST ORAL 03/29/17 06:30 04/28/17 06:29 03/30/17 05:54 Lorazepam (Ativan 2mg/ml 1ml) 0.5 mg Q4H PRN IV For Anxiety 03/28/17 16:30 04/04/17 16:29 Morphine Sulfate (Morphine Sulfate) 1 mg Q4H PRN IVP Moderate Pain (Pain Scale 4-6) 03/28/17 18:30 04/04/17 16:29 Morphine Sulfate (Morphine Sulfate) 4 mg Q4H PRN IVP Severe Pain (Pain Scale 7-10) 03/28/17 18:30 04/04/17 18:29 03/30/17 05:54 Ondansetron HCl (Zofran) 4 mg Q6H PRN IVP Nausea & Vomiting 03/28/17 16:30 04/27/17 16:29 Polyethylene Glycol (Miralax) 17 gm HSPRN PRN ORAL Constipation 03/28/17 16:30 04/27/17 16:29 Prednisone (predniSONE) 40 mg DAILY ORAL 03/29/17 09:00 04/28/17 08:59 03/29/17 10:14 Zolpidem Tartrate (Ambien) 5 mg HSPRN PRN ORAL Insomnia 03/28/17 16:30 04/04/17 16:29 SAIMA LAFLEUR Mar 30, 2017 07:21
[2017-03-30 08:00] VITALS: BP 112/58
--- NOTE | 2017-03-30 11:51 | Neurology Progress Note ---
Interim History Interim History ROS Limited/Unobtainable: No Complaints: Right scapular/shoulder/arm severe pain , less with opiates Events: sl better with meds Objective Physical Exam Last Vital Signs Date Time Temp Pulse Resp B/P (MAP) Pulse Ox O2 Delivery O2 Flow Rate FiO2 03/30/17 08:00 86 03/30/17 08:00 96.8 16 112/58 97 Room Air General: well developed, well nourished, no acute distress, other - very tender R periscap/shoulder area Head: normocophalic, atraumatic Neck: no rigidity Neurologic Exam Mental Status: awake, alert, oriented x4, normal cognition, good mathematical skills, normal recent memory, normal remote memory, preserved visuospatial function Speech: normal speech, no dysarthia Language: normal language, no aphasia Cranial Nerve II: fundus normal, visual finn, no papilledema Cranial Nerves III, IV, : PERRLA, EOMI, pupils Cranial Nerve V: normal facial sensations, temporales function normal, masseters function normal, pterygoids function normal Cranial Nerve VII: other - R facial droop Cranial Nerve VIII: normal hearing, no nystagmus Cranial Nerve IX: normal palate elevation, gag response Cranial Nerve X: no voice hoarseness Cranial Nerve XI: SCM symmetric, trapezii function normal Cranial Nerve XII: tongue midline, no tongue atrophy/fasciculations Motor System: normal muscle tone, strength 5/5, no involuntary movement, no muscle wasting Sensory: normal pinprick, normal light touch, normal position sense, normal graphesthesia Coordination: normal finger to nose bilaterally, normal heel to cantor bilaterally, negative Romberg test Deep Tendon Reflexes: 1+ bicep (L), 1+ bicep (R), 1+ tricep (L), 1+ tricep (R) , 1+ brachioradialis (L), 1+ brachioradialis (R), 1+ knee (L), 1+ knee (R), 1+ ankle (L), 1+ ankle (R) Reflexes: flexor plantar (L), flexor plantar (R) Stance: normal Gait: other - antalgic Impression/Recommendations Problems: (1) Right C4 C5 radiculopathy intractable pain (2) paratracheal mass (3) UTI (urinary tract infection) Status: unchanged Recommendations Prednisone 40mg neurontin 200tid CT chest MS prn SADIEJOSE Mar 30, 2017 11:51
[2017-03-30 12:55] VITALS: BP 115/60
[2017-03-30] MEDS ORDERED: LORazepam Inj 2mg/ml 1ml IV PRN (13:00)
[2017-03-30] MEDS ORDERED: Morphine Sulfate 2mg/ml Inj IVP PRN (14:00)
--- NOTE | 2017-03-30 15:35 | Cardiology Progress Note ---
Assessment/Plan Assessment/Plan right arm and neck pain r paratracheal mass osteoporosis post nasal drip sinus disease awiat ct [id number] Objective Last 24 Hour Vital Signs Date Time Temp Pulse Resp B/P (MAP) Pulse Ox O2 Delivery O2 Flow Rate FiO2 03/30/17 15:23 96.9 03/30/17 12:55 96.9 72 18 115/60 97 Room Air 03/30/17 08:00 86 03/30/17 08:00 96.8 80 16 112/58 97 Room Air 03/30/17 04:06 67 03/30/17 04:05 96.8 67 18 124/68 95 Room Air 03/30/17 00:00 62 03/30/17 00:00 96.8 66 18 115/59 94 Room Air 03/29/17 20:00 97.9 80 18 121/76 94 Room Air 03/29/17 20:00 86 03/29/17 16:00 68 03/29/17 16:00 97.7 62 18 125/64 98 Room Air Intake and Output 03/29/17 03/30/17 19:00 07:00 Intake Total 480 ml 240 ml Balance 480 ml 240 ml Intake Oral 480 ml 240 ml # Voids 2 1 Microbiology Date/Time Source Procedure Growth Status 03/29/17 02:15 Urine,Clean Catch Urine Culture - Preliminary Mixed Gram Positive Organism Resulted LOU CRAVEN Mar 30, 2017 15:35
[2017-03-30 16:00] VITALS: BP 114/79
[2017-03-30] MEDS ORDERED: Mylanta II UD 30ml ORAL PRN (16:00)
[2017-03-30 20:00] VITALS: BP 101/64
[2017-03-30] MEDS ORDERED: Zolpidem 5mg tab ORAL PRN (21:00)
[2017-03-30] MEDS ORDERED: Miralax 17gm pkt ORAL PRN (21:00)
--- NOTE | 2017-03-30 22:15 | Consultation ---
DATE OF CONSULTATION: 03/30/2017 CARDIOLOGY CONSULTATION CONSULTING PHYSICIAN: Sanchez Gray M.D. REFERRING PHYSICIAN: Betsy Alvarez M.D. REASON FOR REFERRAL: Chest pain. HISTORY OF PRESENT ILLNESS: This is an elderly female, who really has not had much in terms of medical problems. About 11 days ago, she started having some pain in the distal part of her forearm on the right side subsequently in the biceps and then the pain radiated to the back and eventually was pushing against the right breast. She was seen at urgent care setting and some evaluation was performed and the patient was started on some pain medications. Pain persisted and she went to the emergency room at [facility] where she was again evaluated and was given some medications. The pain did not help and she continued to be having symptoms, so she presented to the emergency room at [facility]. At [facility], she had an ultrasound of her arm and it was negative for deep venous thrombosis. Chest x-ray and arm x-rays were negative. Cardiac workup apparently was negative and the patient was eventually discharged home. She has been started on some medications here at [place]. She has had much improvement in terms of the pain. She does not have any PND, although she has to sleep with her head up because of postnasal drip that she has been having for some time. She does not have any dyspnea on exertion. She does note that when she had the pain with movements of certain positions, the pain would significantly get worse. There is no palpitations. PAST MEDICAL HISTORY: Positive for history of osteoporosis and Edward's thyroiditis. She has not seen a primary care doctor in approximately two years. She denies all the other medical problems. ALLERGIES: On questioning, she is allergic to iodine. SOCIAL HISTORY: Never smoked and never drank. She is still active. Works as a probate for 7 days a week. REVIEW OF SYSTEMS: GASTROINTESTINAL: Negative. GENITOURINARY: Negative. PULMONARY: As mentioned. CONSTITUTIONAL: Negative. NEUROLOGIC: Negative. PHYSICAL EXAMINATION: GENERAL: Shows to be elderly female, very pleasant, and outspoken. VITAL SIGNS: Blood pressure has been 115/60 with temperature of 96.9 and a pulse of 72. NECK: Supple. No jugular venous distention. LUNGS: Appear to be clear to auscultation and percussion. CARDIAC: S1 is normal. S2 is normal. Regular rate and rhythm. No heaves, thrills, or gallops noted. ABDOMEN: Soft and nontender. Positive bowel sounds. EXTREMITIES: There is no clubbing, cyanosis, or edema. NEUROLOGIC: She is awake, alert, responsive, and in no apparent respiratory distress. DIAGNOSTIC DATA: A CT scan of her head was performed. It showed no intracranial bleed or mass effect. Age related volume losses and sinus disease was documented. She had x-ray of her chest that shows right paratracheal mass or adenopathy, new since March 2015. Cervical spine CT shows the right paratracheal mass, again incompletely visualized. A contrast CT scan was recommended. She has had an electrocardiogram here that shows sinus rhythm and acute sinus bradycardia. No significant ST-T wave abnormalities. She has a venous duplex of lower extremities, which were negative bilaterally in the lower extremities as far as DVT was concerned. Arterial duplex of her lower extremities were also normal. She did have an echocardiogram. Preliminary report of the echocardiogram looks normal. LABORATORY DATA: White count 11.5, hemoglobin 14.1, and platelet count 331,000. Sodium is 139, potassium 4.3, chloride 105, bicarb 25, BUN 20, creatinine 0.7, and glucose is 93. Calcium is 9.2. Liver function tests are normal. Troponin was 0.00. CRP was less than 0.4. Total protein 5 with albumin 3.0. Total cholesterol is 161 with a LDL of 101 and TSH of 13.45 up from 4.36 the day before. ASSESSMENT AND PLAN: 1. Right-sided arm and neck pain. 2. 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 3. Edward's thyroiditis. 4. History of osteoporosis. 5. Postnasal drip. 6. Evidence of sinus disease on a CT scan. PLAN: Dr. Alvarez, this patient was seen in cardiac consultation. The patient, at this time, does not have any cardiac symptoms. She has been evaluated and requires a CT scan of the chest, which is pending at this time. The patient has been seen by orthopedic and neurologist as well. I suspect that her pain is probably related to this peritracheal mass compressing on structures that are causing her to have this pain. I will follow the patient along with you from a cardiac point of view, but I suspect that she may be in need of further pulmonary workup still. Sanchez Gray M.D. DR: NII JOB#: [id number] CC:
[2017-03-31] VITALS: BP 120/75
[2017-03-31 04:00] VITALS: BP 122/61
--- NOTE | 2017-03-31 08:07 | General Progress Note ---
Assessment/Plan Problem List: (1) Hypothyroidism ICD Codes: E03.9 - Hypothyroidism, unspecified SNOMED: [id number] (2) Right C4 C5 radiculopathy intractable pain Assessment/Plan TSH is elevated despite Levothyroxine 75 mcg daily will increase dosage to 100 mcg daily repeat TSH in 4 weeks Subjective Allergies: Coded Allergies: IODINE (Verified Allergy, Unknown, 03/16/15) All Systems: reviewed and negative except above Subjective complaining of persistent right arm burning pain Objective Last 24 Hour Vital Signs Date Time Temp Pulse Resp B/P (MAP) Pulse Ox O2 Delivery O2 Flow Rate FiO2 03/31/17 04:00 97.5 52 21 122/61 80 03/31/17 00:00 97.5 66 21 120/75 95 03/30/17 23:32 97.5 03/30/17 20:00 97.6 68 21 101/64 97 03/30/17 16:00 97.2 76 20 114/79 92 03/30/17 12:55 96.9 72 18 115/60 97 Room Air Intake and Output 03/30/17 03/31/17 19:00 07:00 Intake Total 240 ml 300 ml Balance 240 ml 300 ml Intake Oral 240 ml 300 ml # Voids 1 1 Height (Feet): 5 Height (Inches): 6.00 Weight (Pounds): 130 General Appearance: no apparent distress Neck: normal alignment Cardiovascular: normal rate Respiratory/Chest: lungs clear Abdomen: normal bowel sounds Edema: no edema noted Arm (L), no edema noted Arm (R), no edema noted Leg (L), no edema noted Leg (R), no edema noted Pedal (L), no edema noted Pedal (R), no edema noted Generalized Objective Current Medications Medications (Trade) Dose Ordered Sig/Brien Route PRN Reason Start Time Stop Time Status Last Admin Dose Admin Acetaminophen (Tylenol) 650 mg Q4H PRN ORAL fever 03/30/17 13:00 04/27/17 12:59 Al Hydroxide/Mg Hydroxide (Mylanta II) 30 ml Q6H PRN ORAL dyspepsia 03/30/17 16:00 04/27/17 15:59 Dextrose (Dextrose 50%) STAT PRN IV Hypoglycemia 03/30/17 13:00 04/27/17 12:59 Gabapentin (Neurontin) 200 mg THREE TIMES A DAY ORAL 03/30/17 13:00 04/29/17 12:59 03/30/17 18:10 Levothyroxine Sodium (Synthroid) 75 mcg ACBREAKFAST ORAL 03/31/17 06:30 04/28/17 06:29 03/31/17 05:59 Lorazepam (Ativan 2mg/ml 1ml) 0.5 mg Q4H PRN IV For Anxiety 03/30/17 13:00 04/04/17 12:59 Morphine Sulfate (Morphine Sulfate) 1 mg Q4H PRN IVP Moderate Pain (Pain Scale 4-6) 03/30/17 14:00 04/04/17 13:59 Morphine Sulfate (Morphine Sulfate) 4 mg Q4H PRN IVP Severe Pain (Pain Scale 7-10) 03/30/17 14:00 04/04/17 13:59 03/30/17 23:02 Ondansetron HCl (Zofran) 4 mg Q6H PRN IVP Nausea & Vomiting 03/30/17 14:00 04/27/17 13:59 Polyethylene Glycol (Miralax) 17 gm HSPRN PRN ORAL Constipation 03/30/17 21:00 04/27/17 20:59 03/30/17 21:56 Prednisone (predniSONE) 40 mg DAILY ORAL 03/31/17 09:00 04/28/17 08:59 Zolpidem Tartrate (Ambien) 5 mg HSPRN PRN ORAL Insomnia 03/30/17 21:00 04/04/17 20:59 SOMMER SAMPSON Mar 31, 2017 08:07
[2017-03-31 08:31] VITALS: BP 127/62
[2017-03-31] MEDS: Morphine Sulfate 4mg/ml Inj IVP PRN (09:52)
--- NOTE | 2017-03-31 11:20 | Pulmonology Progress Note ---
Assessment/Plan Problems: (1) Radiculopathy (2) paratracheal mass (3) Ptosis of eyelid, right (4) Failure to thrive in adult (5) Hypothyroidism Assessment/Plan ct chest reviewed, there is a large mass ct guided biopsy ordered d/w neuro endo consult ordered symptomatic treatment pain management add norco med/surg Subjective ROS Limited/Unobtainable: No Constitutional: Reports: no symptoms HEENT: Repors: no symptoms Allergies: Coded Allergies: IODINE (Verified Allergy, Unknown, 03/16/15) Objective Last 24 Hour Vital Signs Date Time Temp Pulse Resp B/P (MAP) Pulse Ox O2 Delivery O2 Flow Rate FiO2 03/31/17 10:22 97.5 03/31/17 08:31 95 Room Air 03/31/17 08:31 97.5 73 19 127/62 95 03/31/17 04:00 97.5 52 21 122/61 80 03/31/17 00:00 97.5 66 21 120/75 95 03/30/17 20:00 97.6 68 21 101/64 97 03/30/17 16:00 97.2 76 20 114/79 92 03/30/17 12:55 96.9 72 18 115/60 97 Room Air Intake and Output 03/30/17 03/31/17 19:00 07:00 Intake Total 240 ml 300 ml Balance 240 ml 300 ml Intake Oral 240 ml 300 ml # Voids 1 1 HEENT: normocephalic, atraumatic Respiratory/Chest: chest wall non-tender, lungs clear Breasts: no masses Cardiovascular: normal rate Abdomen: normal bowel sounds, no organomegaly Genitourinary: normal external genitalia Extremities: no clubbing Microbiology Date/Time Source Procedure Growth Status 03/29/17 02:15 Urine,Clean Catch Urine Culture - Final Mixed Gram Positive Organism Complete Current Medications Medications (Trade) Dose Ordered Sig/Brien Route PRN Reason Start Time Stop Time Status Last Admin Dose Admin Acetaminophen (Tylenol) 650 mg Q4H PRN ORAL fever 03/30/17 13:00 04/27/17 12:59 Al Hydroxide/Mg Hydroxide (Mylanta II) 30 ml Q6H PRN ORAL dyspepsia 03/30/17 16:00 04/27/17 15:59 Dextrose (Dextrose 50%) STAT PRN IV Hypoglycemia 03/30/17 13:00 04/27/17 12:59 Gabapentin (Neurontin) 200 mg THREE TIMES A DAY ORAL 03/30/17 13:00 04/29/17 12:59 03/31/17 09:50 Levothyroxine Sodium (Synthroid) 100 mcg ACBREAKFAST ORAL 04/01/17 06:30 05/01/17 06:29 Lorazepam (Ativan 2mg/ml 1ml) 0.5 mg Q4H PRN IV For Anxiety 03/30/17 13:00 04/04/17 12:59 Morphine Sulfate (Morphine Sulfate) 1 mg Q4H PRN IVP Moderate Pain (Pain Scale 4-6) 03/30/17 14:00 04/04/17 13:59 Morphine Sulfate (Morphine Sulfate) 4 mg Q4H PRN IVP Severe Pain (Pain Scale 7-10) 03/30/17 14:00 04/04/17 13:59 03/31/17 09:52 Ondansetron HCl (Zofran) 4 mg Q6H PRN IVP Nausea & Vomiting 03/30/17 14:00 04/27/17 13:59 Polyethylene Glycol (Miralax) 17 gm HSPRN PRN ORAL Constipation 03/30/17 21:00 04/27/17 20:59 03/30/17 21:56 Prednisone (predniSONE) 40 mg DAILY ORAL 03/31/17 09:00 04/28/17 08:59 03/31/17 09:50 Zolpidem Tartrate (Ambien) 5 mg HSPRN PRN ORAL Insomnia 03/30/17 21:00 04/04/17 20:59 SAIMA LAFLEUR Mar 31, 2017 11:20
[2017-03-31 11:51] VITALS: BP 118/70
[2017-03-31] MEDS ORDERED: HYDROcodone/Acetamin 10/325 tab ORAL PRN (12:00)
--- NOTE | 2017-03-31 12:16 | Neurology Progress Note ---
Interim History Interim History ROS Limited/Unobtainable: No Complaints: Right scapular/shoulder/arm severe pain , better with rx Events: sl better with meds, but when off MS -severe pain Objective Physical Exam Last Vital Signs Date Time Temp Pulse Resp B/P (MAP) Pulse Ox O2 Delivery O2 Flow Rate FiO2 03/31/17 11:51 97.8 65 19 118/70 95 03/31/17 08:31 Room Air General: well developed, well nourished, no acute distress, other - very tender R periscap/shoulder area Head: normocophalic, atraumatic Neck: no rigidity Neurologic Exam Mental Status: awake, alert, oriented x4, normal cognition, good mathematical skills, normal recent memory, normal remote memory, preserved visuospatial function Speech: normal speech, no dysarthia Language: normal language, no aphasia Cranial Nerve II: fundus normal, visual finn, no papilledema Cranial Nerves III, IV, : PERRLA, EOMI, pupils Cranial Nerve V: normal facial sensations, temporales function normal, masseters function normal, pterygoids function normal Cranial Nerve VII: other - R facial droop Cranial Nerve VIII: normal hearing, no nystagmus Cranial Nerve IX: normal palate elevation, gag response Cranial Nerve X: no voice hoarseness Cranial Nerve XI: SCM symmetric, trapezii function normal Cranial Nerve XII: tongue midline, no tongue atrophy/fasciculations Motor System: normal muscle tone, strength 5/5, no involuntary movement, no muscle wasting Sensory: normal pinprick, normal light touch, normal position sense, normal graphesthesia Coordination: normal finger to nose bilaterally, normal heel to cantor bilaterally, negative Romberg test Deep Tendon Reflexes: 1+ bicep (L), 1+ bicep (R), 1+ tricep (L), 1+ tricep (R) , 1+ brachioradialis (L), 1+ brachioradialis (R), 1+ knee (L), 1+ knee (R), 1+ ankle (L), 1+ ankle (R) Reflexes: flexor plantar (L), flexor plantar (R) Stance: normal Gait: other - antalgic Impression/Recommendations Problems: (1) Right C4 C5 radiculopathy intractable pain (2) paratracheal mass (3) UTI (urinary tract infection) Status: unchanged Recommendations Prednisone 50mg [id number] CT chest noted dilaudid 2mg q6 prn MS prn pt JOSE NOEL Mar 31, 2017 12:16
--- NOTE | 2017-03-31 12:57 | Diagnostic Imaging Report ---
Indication: Back pain Technique: CT chest was performed utilizing automated exposure control without intravenous contrast material. Axial, sagittal and coronal images were generated. CT dose: Total DLP 657.77 mGycm; CTDI vol 19.35 mGy Comparison: Correlation made to CT of the cervical spine 03/28/2017 Findings: Valuation limited without IV contrast There is a right suprahilar/paratracheal mass which measures approximately 3.8 cm AP by 2.5 cm transverse and spans approximately 6 cm craniocaudal. There is central low attenuation of this mass suggesting a degree of necrosis.. There is enlarged right paratracheal mediastinal lymph node which measures 2 x 2.2 cm (series 3 image 18). Probable right hilar lymphadenopathy as well. An enlarged right supraclavicular lymph node measures 1.1 x 1.3 cm (series 3 image 6). There is mild surrounding groundglass opacity in the right upper lobe. There is dependent bibasilar atelectasis. There is no pleural effusion or pneumothorax. Heart size within normal limits. There is trace pericardial effusion/thickening. Thoracic aorta normal in caliber with mild atherosclerosis. Thyroid unremarkable in appearance. Multiple low-attenuation lesions noted within the liver, including a large cystic lesion in the posterior right lobe of the liver with some surgical material at its periphery. These findings are unchanged compared to the prior CT of the abdomen 03/16/2005. There is cholelithiasis without CT evidence to suggest acute cholecystitis. No adrenal nodule or mass appreciated. No acute osseous abnormality seen. No focal lytic or blastic bony lesion appreciated. IMPRESSION: Limited evaluation without contrast. Right suprahilar/paratracheal mass as detailed above highly suspicious for malignancy. Abnormal right supraclavicular and mediastinal lymph nodes concerning for zoe metastases. Multiple low-attenuation lesions within the liver stable in size and number compared to CT scan of 03/16/2015. Some of these can be definitively characterized as cysts. Additional lesions are too small to fully characterize. Cholelithiasis without evidence of acute cholecystitis. The CT scanner at [facility] is accredited by the [employer] and the scans are performed using protocols designed to limit radiation exposure to as low as reasonably achievable to attain images of sufficient resolution adequate for diagnostic evaluation.
[2017-03-31] MEDS: HYDROmorphone 2mg tab ORAL PRN (13:27)
[2017-03-31 15:55] VITALS: BP 128/70
[2017-03-31 20:00] VITALS: BP 126/75
[2017-03-31] MEDS ORDERED: Fleet's Enema 133ml RECTAL PRN (20:00)
[2017-03-31] MEDS: Sennosides 8.6mg ORAL SCH (20:00)
[2017-03-31] MEDS: Docusate 100mg cap ORAL SCH (20:00)
[2017-04-01] VITALS: BP 116/76
[2017-04-01] MEDS: HYDROmorphone 2mg tab ORAL PRN ×3 (02:19→11:00)
[2017-04-01 04:00] VITALS: BP 122/60
[2017-04-01 08:00] VITALS: BP 109/58
[2017-04-01] MEDS: Sennosides 8.6mg ORAL SCH (08:51)
[2017-04-01] MEDS: Docusate 100mg cap ORAL SCH ×2 (08:51→13:07)
--- NOTE | 2017-04-01 11:37 | Neurology Progress Note ---
Interim History Interim History ROS Limited/Unobtainable: No Complaints: Right scapular/shoulder/arm severe pain , better with rx Events: sl better with meds, but when off MS -severe pain Objective Physical Exam Last Vital Signs Date Time Temp Pulse Resp B/P (MAP) Pulse Ox O2 Delivery O2 Flow Rate FiO2 04/01/17 08:00 80 20 109/58 95 Room Air 04/01/17 07:58 97.0 General: well developed, well nourished, no acute distress, other - very tender R periscap/shoulder area Head: normocophalic, atraumatic Neck: no rigidity Neurologic Exam Mental Status: awake, alert, oriented x4, normal cognition, good mathematical skills, normal recent memory, normal remote memory, preserved visuospatial function Speech: normal speech, no dysarthia Language: normal language, no aphasia Cranial Nerve II: fundus normal, visual finn, no papilledema Cranial Nerves III, IV, : PERRLA, EOMI, pupils Cranial Nerve V: normal facial sensations, temporales function normal, masseters function normal, pterygoids function normal Cranial Nerve VII: other - R facial droop Cranial Nerve VIII: normal hearing, no nystagmus Cranial Nerve IX: normal palate elevation, gag response Cranial Nerve X: no voice hoarseness Cranial Nerve XI: SCM symmetric, trapezii function normal Cranial Nerve XII: tongue midline, no tongue atrophy/fasciculations Motor System: normal muscle tone, strength 5/5, no involuntary movement, no muscle wasting Sensory: normal pinprick, normal light touch, normal position sense, normal graphesthesia Coordination: normal finger to nose bilaterally, normal heel to cantor bilaterally, negative Romberg test Deep Tendon Reflexes: 1+ bicep (L), 1+ bicep (R), 1+ tricep (L), 1+ tricep (R) , 1+ brachioradialis (L), 1+ brachioradialis (R), 1+ knee (L), 1+ knee (R), 1+ ankle (L), 1+ ankle (R) Reflexes: flexor plantar (L), flexor plantar (R) Stance: normal Gait: other - antalgic Impression/Recommendations Problems: (1) Probably metastatic Right lung CA, referred pain (2) 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
--- NOTE | 2017-04-01 11:38 | Diagnostic Imaging Report ---
APPROVED REPORT CPT Code: 40396 Symptoms Comments: Pain BILATERAL: Common femoral artery waveform analysis is within normal limits at rest. Color flow duplex sonography reveals patency of the superficial femoral, popliteal, and tibial arteries, there is no evidence of stenosis or occlusion within these segments. Doppler tibial artery waveform analysis is within normal limits, bilaterally. There is no evidence of significant arterial occlusive disease, bilaterally.
--- NOTE | 2017-04-01 11:38 | Diagnostic Imaging Report ---
APPROVED REPORT CPT Code: 27146 Present Symptoms Lower Extremity Pain: Bilateral BILATERAL: Imaging reveals a patent deep venous system bilaterally. There is no evidence of thrombus within the femoral, popliteal or tibial segments. The greater saphenous veins are also within normal limits. Doppler indicates normal spontaneous flow within these segments.
[2017-04-01 12:00] VITALS: BP 137/65
[2017-04-01] MEDS ORDERED: DILAUDID1 MG/1 ML PO (12:37)
[2017-04-01] MEDS ORDERED: NEURONTIN300 MG ORAL (12:37)
[2017-04-01] MEDS ORDERED: PREDNISONE10 M2 PO (12:38)
[2017-04-01] MEDS ORDERED: DILAUDID8 MG PO (12:41)
[2017-04-01] MEDS ORDERED: DILAUDID2 MG ORAL (12:43)
--- NOTE | 2017-04-01 16:08 | Pulmonology Progress Note ---
Assessment/Plan Problems: (1) Radiculopathy (2) paratracheal mass (3) Ptosis of eyelid, right (4) Failure to thrive in adult (5) Hypothyroidism Assessment/Plan ct chest reviewed, there is a large mass ct guided biopsy ordered, but pt refused d/w neuro symptomatic treatment pain management add norco pt wanted to go home Subjective ROS Limited/Unobtainable: No Allergies: Coded Allergies: IODINE (Verified Allergy, Unknown, 03/16/15) Objective Last 24 Hour Vital Signs Date Time Temp Pulse Resp B/P (MAP) Pulse Ox O2 Delivery O2 Flow Rate FiO2 04/01/17 12:00 92 20 137/65 99 Room Air 04/01/17 08:00 80 20 109/58 95 Room Air 04/01/17 07:58 97.0 04/01/17 04:00 97.0 60 20 122/60 99 04/01/17 00:00 97.6 77 20 116/76 95 03/31/17 20:00 97.3 76 20 126/75 95 Intake and Output 03/31/17 04/01/17 19:00 07:00 Intake Total 800 ml 400 ml Balance 800 ml 400 ml Intake Oral 800 ml 400 ml # Voids 3 2 Objective General Appearance: cachetic Lines, tubes and drains: peripheral HEENT: normocephalic, atraumatic Neck: non-tender, normal alignment Respiratory/Chest: chest wall non-tender, lungs clear Cardiovascular/Chest: normal peripheral pulses, normal rate Abdomen: normal bowel sounds, non tender Genitourinary/Rectal: normal genital exam, normal rectal exam Skin Exam: normal pigmentation Current Medications Medications (Trade) Dose Ordered Sig/Brien Route PRN Reason Start Time Stop Time Status Last Admin Dose Admin Acetaminophen (Tylenol) 650 mg Q4H PRN ORAL fever 03/30/17 13:00 04/27/17 12:59 Al Hydroxide/Mg Hydroxide (Mylanta II) 30 ml Q6H PRN ORAL dyspepsia 03/30/17 16:00 04/27/17 15:59 Dextrose (Dextrose 50%) STAT PRN IV Hypoglycemia 03/30/17 13:00 04/27/17 12:59 Docusate Sodium (Colace) 100 mg THREE TIMES A DAY ORAL 03/31/17 20:00 04/30/17 19:59 04/01/17 13:07 Gabapentin (Neurontin) 300 mg THREE TIMES A DAY ORAL 03/31/17 13:00 04/30/17 12:59 04/01/17 13:07 Hydromorphone HCl (Dilaudid) 2 mg Q4H PRN ORAL For Pain 03/31/17 14:00 04/07/17 13:59 04/01/17 11:00 Levothyroxine Sodium (Synthroid) 100 mcg ACBREAKFAST ORAL 04/01/17 06:30 05/01/17 06:29 04/01/17 06:07 Lorazepam (Ativan 2mg/ml 1ml) 0.5 mg Q4H PRN IV For Anxiety 03/30/17 13:00 04/04/17 12:59 Ondansetron HCl (Zofran) 4 mg Q6H PRN IVP Nausea & Vomiting 03/30/17 14:00 04/27/17 13:59 Polyethylene Glycol (Miralax) 17 gm HSPRN PRN ORAL Constipation 03/30/17 21:00 04/27/17 20:59 03/30/17 21:56 Prednisone (predniSONE) 50 mg DAILY ORAL 04/01/17 09:00 05/01/17 08:59 04/01/17 08:51 Sennosides (Senokot) 1 tab DAILY ORAL 03/31/17 20:00 04/30/17 19:59 04/01/17 08:51 Sodium Phosphate (Fleet's Sodium Phosl Enema) 133 ml DAILYPRN PRN RECTAL Constipation 03/31/17 20:00 04/30/17 19:59 Zolpidem Tartrate (Ambien) 5 mg HSPRN PRN ORAL Insomnia 03/30/17 21:00 04/04/17 20:59 SAIMA LAFLEUR Apr 01, 2017 16:08
--- NOTE | 2017-04-01 18:33 | Cardiology Report ---
APPROVED REPORT EXAM: Two-dimensional and M-mode echocardiogram with Doppler and color Doppler. INDICATION LV FUNCTION M-Mode DIMENSIONS IVSd1.3 (0.7-1.1cm)Left Atrium (MM)3.2 (1.6-4.0cm) LVDd4.4 (3.5-5.6cm)Aortic Root2.5 (2.0-3.7cm) PWd1.5 (0.7-1.1cm)Aortic Cusp Exc.1.7 (1.5-2.0cm) IVSs2.4 cm LVDs2.6 (2.5-4.0cm) PWs2.1 cm Normal left ventricular chamber size, systolic function and wall motion. Left ventricular ejection fraction estimated to 70 %. No evidence of ventricular hypertrophy. No evidence of pericardial effusion. All other cardiac chamber sizes are within normal limits. Focal aortic valve sclerosis with adequate cusp excursion. Thickened mitral valve leaflets with normal excursion. Mitral annulus and aortic root calcification. Pulmonic valve not well visualized. Normal tricuspid valve structure. IVC at normal size with physiologic collapse . A color flow and spectral Doppler study was performed and revealed: Trace aortic insufficiency . Trace mitral regurgitation. Normal left ventricular diastolic function. Trace tricuspid regurgitation. Tricuspid systolic velocities suggests peak right ventricular systolic pressure of 22mmHg Trace Pulmonic regurgitation present.
--- NOTE | 2017-04-02 12:34 | Discharge Summary ---
Discharge Summary Hospital Course Date of Admission Mar 28, 2017 at 13:44 Date of Discharge Apr 01, 2017 at 15:59 Admitting Diagnosis generalized weakness, hypothyroid HPI Pilar Santamaria is a 81 year old female who was admitted on Mar 28, 2017 at 13:44 for Generalized Weakness, Hypothyroid Hospital Course dc summary #[id number] Discharge Medications Continued Medications: Gabapentin (Neurontin) 300 Mg Capsule 300 MG ORAL THREE TIMES A DAY, #15 CAP 0 Refills Hydromorphone HCl (Dilaudid) 2 Mg Tablet 2 MG ORAL Q4H PRN for For Pain, #20 TAB 0 Refills Prednisone (Prednisone) 10 Mg Tab.ds.pk 10 MG PO TID, PACK Discharge Condition Upon Discharge: stable Discharge Disposition Patient was discharged to Home (01) Discharge Diagnoses: Discharge Instructions Discharge Instructions Special Instructions I have been assigned to complete a D/C Summary on this account. I was not involved in the patient management Zoya Bernal NP (Vanchtein) Apr 02, 2017 12:34
--- NOTE | 2017-04-05 12:55 | Discharge Summary 2 SIG ---
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 She tried at home aspirin and cold compresses, but felt no improvement. She has been evaluated after that in the urgent care facility where they were suspected that she might have cardiac abnormality, however, workup in the urgent care was negative. She was given on analgesic, Tylenol No. 3, which produced no improvement. She also tried tramadol without improvement. She had a brief visit to the emergency room at [facility]. No definite diagnosis was made. She was advised to see doctor and request an MRI of the neck. However, she was claustrophobic and unable to tolerate the procedure. She was given Medrol pack. She only was able to take first dose, then pain became excruciating. She called match marker and came to the facility. On evaluation, she was found to have a droopy right eye. The patient also complained of constant drainage from her left nostril. WBC -13.2. Urinalysis revealed pyuria and +1 ketones. Chemistry showed elevated TSH-4.376. Normal liver function. CT of the brain revealed no acute intracranial pathology, but showed old lacunar infarct in the left basal ganglia and sinus disease with opacification of left sphenoid sinus. Chest x-ray revealed right paratracheal mass versus adenopathy, new since 03/23/2015. Otherwise, no acute cardiopulmonary process. Cervical spine CT revealed right paratracheal mass incompletely visualized. Recommended contrast chest CT for further evaluation. No acute bony trauma. The patient was admitted with a diagnosis of right paratracheal mass, hypothyroidism, right eyelid ptosis, sinus disease, and right-sided arm and neck pain. HOSPITAL COURSE: The patient was admitted. Neurology, Cardiology, and Ortho consults were requested. Neurologist seen and evaluated the patient and diagnosed the patient with right cervical radiculopathy and possible referral pain secondary to right paratracheal mass or lesion, rule out disc prolapse. Subsequently, he ordered CT of the chest with and without contrast. The patient was started on prednisone with gradual tapering as well as the Neurontin. Pain management was addressed with morphine and local ice compresses both on as needed basis. 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 Abnormal right supraclavicular mediastinal lymph nodes concerning for zoe metastasis. Multiple low-attenuation lesions within the liver stable in size and number compared to CT scan on 03/16/2015. Some of them can be definitely characterized as cysts. Cholelithiasis without evidence of acute cholecystitis. Venous duplex of bilateral lower extremity was negative. Subsequently, CT guided biopsy of paratracheal mass was ordered. However, the patient declined. She preferred to be discharged and go to [facility] for further workup and management at higher level of care. Tube Test Technician seen the patient for hypothyroidism. The patient had Edward thyroiditis. TSH elevated. Dose of levothyroxine was increased. Check thyroid panel in four weeks. Product Craftsman closely followed the patient. The patient had no cardiac complaints. No chest pain. The right-sided arm and neck pain were likely secondary to right suprahilar paratracheal mass. Cervical spine CT showed at level C5-C6 mild degenerative disc narrowing, but no significant disk bulge or protrusion or spinal stenosis. Degenerative changes were noted. Orthopedic surgeon seen the patient and recommended conservative medical management with steroids and Neurontin as ordered by the neurologist. Surgeon preferred at this time to have conservative management and monitor how the patient will responds to treatment. Echocardiogram revealed preserved ejection fraction of 70% and right ventricular systolic pressure of 22. Arterial duplex of bilateral lower extremities was negative. Pain management addressed. Bowel regimen instituted. DVT prophylaxis provided. The patient was stable for discharge home. The patient will go to [facility] for further workup. FINAL DIAGNOSES: 1. Right suprahilar/paratracheal mass. 2. Right radiculopathy with intractable pain. 3. Edward thyroiditis. 4. Hypothyroidism with elevated TSH. 5. Sinus disease ( as evident on CT chest). 6. History of lumbar spinal stenosis. 7. Cervical discogenic disease. 8. Failure to thrive. 9. Right eyelid ptosis. DISCHARGE MEDICATIONS: See medication reconciliation list. DISCHARGE INSTRUCTIONS: The patient was discharged home. The patient to follow up with [facility] for further workup and management. Betsy Alvarez M.D. I have been assigned to dictate discharge summary on this account and I was not involved in the patient's management. Zoya Bernal (Vanchtein) N.PEzequiel DR: MACHO JOB#: [id number] CC: CELY
--- NOTE | 2017-04-08 13:59 | Cardiology Report ---
APPROVED REPORT EKG Measurement Heart [id number] Sinus bradycardia Low voltage QRS Borderline ECG
--- NOTE | 2017-04-15 10:46 | Physician Query ---
--------- THIS DOCUMENT IS A PERMANENT PART OF THE MEDICAL RECORD --------- PLEASE COMPLETE DOCUMENT BEFORE SIGNING Dear Dr. Betsy Alvarez Date: Apr Building Certifier/CDS Name: ROCKY Marroquin Building Certifier/CDS Phone No.: Exercise your independent professional judgment when responding to the query. Questions asked do not imply a particular answer is desired or expected. We greatly appreciate your clarification on this issue. CLINICAL DOCUMENTATION STATES: 81-year-old female presented to the [facility] with CC of right upper extremity burning sensation with gradual onset of symptoms. Patient reports as being worse with neck movements. She states that she had not had any recent trauma. The patient was noted to have increased right upper extremity discomfort with a burning type sensation which was not associated with any weakness however she was noted to have increased pain with abduction. CLINICAL FINDINGS SHOW: Neurologist seen and evaluated the patient and diagnosed the patient with right cervical radiculopathy and possible referral pain secondary to right paratracheal mass or lesion, rule out disc prolapse. 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 However, the patient declined. She preferred to be discharged and go to [facility] for further workup and management at higher level of care. Please respond to the following question: Is there a diagnosis specific to these symptoms or values? If so please state below. PHYSICIAN RESPONSE: Condition Present on Admission: [] Yes [] No []Clinically Undeterminable Please also document in your Progress Notes and/or Discharge Summary and indicate if the condition was present on admission. Dr. Johan Alvarez MD Date/Time [facility]
== END 2017-04-01 15:59 | disposition home or self-care (01) | DRG 202 ==
LOC: EMR 13:35 → 2E 13:44 → EDBEDREQ 13:59 → 4E 03-30 12:06
DX: J39.8 Other specified diseases of upper respiratory tract (principal); N39.0 Urinary tract infection, site not specified; R62.7 Adult failure to thrive; J32.9 Chronic sinusitis, unspecified; M50.122 Cervical disc disorder at C5-C6 level with radiculopathy; H02.401 Unspecified ptosis of right eyelid; E03.9 Hypothyroidism, unspecified; Z88.3 Allergy status to other anti-infective agents; M81.0 Age-related osteoporosis without current pathological fracture; E06.3 Autoimmune thyroiditis; M48.061 Spinal stenosis, lumbar region without neurogenic claudication
CPT/HCPCS: 36415; 70450; 71045; 71250; 72125; 80053; 80061; 81001; 82378; 82962; 84443; 84484; 85025; 85651; 86140; 87086; 93005; 93306; 93925; 93970; 99285; J2405